=== PATIENT | female | born 1970 | race Caucasian/White ===

== ENCOUNTER 2020-12-05 18:44 | Emergency (ER) | payer OTHER ==
[~2020-12-05] VITALS: Ht 172.7 cm; Wt 68.1 kg
[2020-12-05] MEDS ORDERED: NS IV 1000 ML 1,000 ML IV SCH ×2 (19:00→19:45)
[2020-12-05] MEDS ORDERED: ONDANSETRON 4 MG/2 ML (SDV) Z0FRAN IVP ONE (19:00)
[2020-12-05 19:14] LABS: BASOPHILS % (AUTO) 1 % (0-10); EOSINOPHILS # (AUTO) 0.1 10^3/uL (0.0-0.3); EOSINOPHILS % (AUTO) 2 % (0-10); HEMATOCRIT 38 % (35-52); HEMOGLOBIN 12.6 g/dL (11.5-16.0); LYMPHOCYTES % (AUTO) 36 % (12-44); MEAN CORPUSCULAR HEMOGLOBIN 31 pg (25-34); MEAN CORPUSCULAR HGB CONC 33 g/dL (32-36); MEAN CORPUSCULAR VOLUME 94 fL (80-99); MEAN PLATELET VOLUME 9.7 fL (9.0-12.2); MONOCYTES # (AUTO) 0.6 10^3/uL (0.0-1.0); MONOCYTES % (AUTO) 7 % (0-12); NEUTROPHILS # (AUTO) 4.5 10^3/uL (1.8-7.8); NEUTROPHILS % (AUTO) 54 % (42-75); PLATELET COUNT 212 10^3/uL (130-400); WHITE BLOOD COUNT 8.3 10^3/uL (4.3-11.0)
[2020-12-05 19:30] LABS: ACETAMINOPHEN < 10 UG/ML (10-30); ALANINE AMINOTRANSFERASE 28 U/L (0-55); ALBUMIN 4.3 GM/DL (3.2-4.5); ALKALINE PHOSPHATASE 64 U/L (40-136); BILIRUBIN,TOTAL 0.4 MG/DL (0.1-1.0); BUN/CREATININE RATIO 27; CALCIUM 9.3 MG/DL (8.5-10.1); CARBON DIOXIDE 25 MMOL/L (21-32); CHLORIDE 108 MMOL/L (98-107); CREATININE SERUM 0.91 MG/DL (0.60-1.30); GFR ESTIMATED > 60; GLUCOSE 96 MG/DL (70-105); POTASSIUM 3.7 MMOL/L (3.6-5.0); SALICYLATE < 5.0 MG/DL (5.0-20.0); SODIUM 140 MMOL/L (135-145)
--- NOTE | 2020-12-05 19:35 | ED General ---
General Chief Complaint: General Problems/Pain Stated Complaint: ALLERGIC REACTION/ETOH USE Nursing Triage Note: TO ED WITH MALE WHO REPORTS SHE HAS BEEN DRINKING WHISKEY SINCE 1430 TODAY. WAS DX WITH UTI TODAY A [facility]. PATIENT WILL OPEN EYES WHEN TALKED TO. MALE FRIEND AT BEDSIDE. Nursing Sepsis Screen: No Definite Risk History of Present Illness Date Seen by Provider: Dec 05, 2020 Time Seen by Provider: 18:44 Initial Comments 50-year-old female presents after drinking whiskey for several hours. Patient is coherent but drowsy. Friend reports that she was drinking whiskey all afternoon, she does not routinely drink alcohol. He is unsure the amount that she drinks. She was recently started on Cipro and Pyridium for UTI. Timing/Duration: 1-3 Hours Associated Systoms: No Nausea/Vomiting Allergies and Home Medications Allergies Coded Allergies: No Known Drug Allergies (Unverified , 12/05/20) Patient Home Medication List Home Medication List Reviewed: Yes Review of Systems Review of Systems Constitutional: no symptoms reported, see HPI EENTM: see HPI, no symptoms reported Respiratory: no symptoms reported, see HPI Cardiovascular: no symptoms reported, see HPI Gastrointestinal: no symptoms reported, see HPI Genitourinary: see HPI, dysuria, frequency All Other Systems Reviewed Negative Unless Noted: Yes Past Bqolpvg-Qyaxla-Bquudx Hx Past Med/Social Hx: Reviewed Nursing Past Med/Soc Hx Patient Social History Alcohol Use: Occasionally Uses Alcohol Beverage of Choice: Whiskey Smoking Status: Never a Smoker Recent Infectious Disease Expo: No Past Medical History Surgeries: Yes (PMH FROM DAUGHTER BY PHONE. ) Section, Hysterectomy Respiratory: No Cardiac: No Neurological: No Genitourinary: No Gastrointestinal: No Musculoskeletal: No Endocrine: No HEENT: No Cancer: No Psychosocial: Yes Anxiety, Depression Physical Exam Vital Signs Vital Signs - First Documented 12/05/20 18:44 Temp 36.0 Pulse 91 Resp 18 B/P (MAP) 120/80 (93) Pulse Ox 95 Capillary Refill : Less Than 3 Seconds Height, Weight, BMI Height: '" Weight: lbs. oz. kg; 22.00 BMI Method: General Appearance: WD/WN (Yes yes so we are not can be able to bring the next Covid back until 10 or 9 late your 10 or 8 leave well well we do not know that this 1 out there with a headache and short of air is Covid so we can put her in 9 but we can put her in 8 weeks attends awake yes she is awake she is okayShe is upset that she is embarrassed okay for from her diet no no she is just highly intoxicated but better), Mild Distress Eyes: Bilateral Eye Normal Inspection, Bilateral Eye PERRL, Bilateral Eye EOMI HEENT: PERRL/EOMI, TMs Normal, Normal ENT Inspection, Pharynx Normal Neck: Full Range of Motion, Normal Inspection (Hit her friend states she does not normally drink and she started drinking whiskey water), Non Tender, Supple Respiratory: Chest Non Tender, Lungs Clear, Normal Breath Sounds Cardiovascular: Regular Rate, Rhythm (Thank you), No Murmur, Normal Peripheral Pulses ( and unless we have a known) Gastrointestinal: Normal Bowel Sounds, Non Tender, Soft (Covid we can put another person in there until explained) Back: Normal Inspection, No CVA Tenderness Extremity: Normal Capillary Refill, Normal Inspection, Normal Range of Motion Neurologic/Psychiatric: Oriented x3, No Motor/Sensory Deficits, Normal Mood/Affect Skin: Normal Color, Warm/Dry Progress/Results/Core Measures Suspected Sepsis Recent Fever Within 48 Hours: No Infection Criteria Present: None New/Unexplained Altered Menta: No Sepsis Screen: No Definite Risk SIRS Temperature: Pulse: 91 Respiratory Rate: 18 Laboratory Tests 12/05/20 18:53: White Blood Count 8.3 Blood Pressure 120 /80 Mean: 93 Laboratory Tests 12/05/20 18:53: Platelet Count 212 Results/Orders Lab Results Laboratory Tests Test 12/05/20 18:53 Range/Units White Blood Count 8.3 4.3-11.0 10^3/uL Red Blood Count 4.01 3.80-5.11 10^6/uL Hemoglobin 12.6 11.5-16.0 g/dL Hematocrit 38 35-52 % Mean Corpuscular Volume 94 80-99 fL Mean Corpuscular Hemoglobin 31 25-34 pg Mean Corpuscular Hemoglobin Concent 33 32-36 g/dL Red Cell Distribution Width 13.2 10.0-14.5 % Platelet Count 212 130-400 10^3/uL Mean Platelet Volume 9.7 9.0-12.2 fL Immature Granulocyte % (Auto) 0 % Neutrophils (%) (Auto) 54 42-75 % Lymphocytes (%) (Auto) 36 12-44 % Monocytes (%) (Auto) 7 0-12 % Eosinophils (%) (Auto) 2 0-10 % Basophils (%) (Auto) 1 0-10 % Neutrophils # (Auto) 4.5 1.8-7.8 10^3/uL Lymphocytes # (Auto) 3.0 1.0-4.0 10^3/uL Monocytes # (Auto) 0.6 0.0-1.0 10^3/uL Eosinophils # (Auto) 0.1 0.0-0.3 10^3/uL Basophils # (Auto) 0.0 0.0-0.1 10^3/uL Immature Granulocyte # (Auto) 0.0 0.0-0.1 10^3/uL My Orders Orders - PADMINI SWANN Ua Culture If Indicated (12/05/20 18:51) Cbc With Automated Diff (12/05/20 18:51) Comprehensive Metabolic Panel (12/05/20 18:51) Alcohol (12/05/20 18:51) Drug Screen Stat (Urine) (12/05/20 18:51) Acetaminophen (12/05/20 18:51) Salicylate (12/05/20 18:51) Ed Iv/Invasive Line Start (12/05/20 18:51) Monitor-Rhythm Ecg Trace Only (12/05/20 18:51) Ed Iv/Invasive Line Start (12/05/20 18:51) Ed Iv/Invasive Line Start (12/05/20 18:53) Ns Iv 1000 Ml (Sodium Chloride 0.9%) (12/05/20 19:00) Ondansetron Injection (Zofran Injectio (12/05/20 19:00) Medications Given in ED Current Medications Medications Dose Ordered Sig/Jennifer Route Start Time Stop Time Status Last Admin Dose Admin Ondansetron HCl 8 mg ONCE ONCE IVP 12/05/20 19:00 12/05/20 19:01 DC 12/05/20 19:03 8 MG Vital Signs/I&O 12/05/20 18:44 Temp 36.0 Pulse 91 Resp 18 B/P (MAP) 120/80 (93) Pulse Ox 95 Capillary Refill : Less Than 3 Seconds Blood Pressure Mean: 93 Departure Impression Primary Impression: Acute alcohol intoxication Qualified Codes: F10.920 - Alcohol use, unspecified with intoxication, uncomplicated Disposition: HOME, SELF-CARE Condition: Improved Departure-Patient Inst. Decision time for Depature: 19:35 Patient Instructions: Alcohol Abuse and Alcoholism (DC), Urinary Tract Infection, Adult (DC) Add. Discharge Instructions: Increase water intake, 16 ounces every 2-3 hours while awake. Eat a bland meal. Avoid any alcohol intake. Continue to take your antibiotics and Pyridium as directed. Return to the emergency department for new, urgent healthcare needs. All discharge instructions reviewed with patient and/or family. Voiced understanding. PADMINI SWANN Dec 05, 2020 19:35
[2020-12-05 20:51] VITALS: BP 94/55
[2020-12-05 20:56] LABS: BILIRUBIN,URINE NEGATIVE (NEGATIVE); CLARITY,URINE CLEAR; COLOR,URINE ORANGE; GLUCOSE, URINE (UA) NEGATIVE (NEGATIVE); KETONES,URINE NEGATIVE (NEGATIVE); LEUKOCYTE ESTERASE ,URINE TRACE (NEGATIVE); NITRITE,URINE POSITIVE (NEGATIVE); PH,URINE 6.5 (5-9); PROTEIN,URINE NEGATIVE (NEGATIVE)
[2020-12-05 21:09] LABS: BACTERIA,URINE TRACE /HPF; SQUAMOUS EPITHELIAL CELL,UR 0-2 /HPF
[2020-12-05 21:18] LABS: AMPHETAMINE SCREEN, URINE NEGATIVE (NEGATIVE); BARBITURATE SCREEN URINE NEGATIVE (NEGATIVE); BENZODIAZEPINES SCREEN URINE NEGATIVE (NEGATIVE); CANNABINOID SCREEN, URINE NEGATIVE (NEGATIVE); COCAINE SCREEN URINE NEGATIVE (NEGATIVE); METHADONE STAT NEGATIVE (NEGATIVE); METHAMPHETAMINE SCREEN URINE S NEGATIVE (NEGATIVE); OPIATE SCREEN URINE NEGATIVE (NEGATIVE); OXYCODONE STAT NEGATIVE (NEGATIVE); PROPOXYPHENE STAT NEGATIVE (NEGATIVE); TRICYCLIC ANTIDEPRESSANTS SCRE NEGATIVE (NEGATIVE)
== END 2020-12-05 20:59 | disposition home or self-care (01) ==
LOC: ER 18:47 → EDBD 18:47 → ER 20:59
DX: F10.129 Alcohol abuse with intoxication, unspecified (principal)
CPT/HCPCS: 80053; 80306; 81000; 85025; 93041; 99284; G0480 ×3; 36415; 80320; 80329